=== PATIENT | male | born 1990 | race Caucasian/White ===

== ENCOUNTER 2019-05-31 16:03 | Emergency (ER) | payer SELFPAY ==
[2019-05-31] MEDS: IBUPROFEN 800 MG TAB PO (16:51)
== END 2019-05-31 17:59 | disposition home or self-care (01) ==
LOC: FTE 16:03
DX: S29.9XXA Unspecified injury of thorax, initial encounter (principal); F17.210 Nicotine dependence, cigarettes, uncomplicated; R07.81 Pleurodynia; W50.0XXA Accidental hit or strike by another person, initial encounter; Y92.322 Soccer field as the place of occurrence of the external cause
CPT/HCPCS: 71045; 71100; 71120; 93005; 99284-25